=== PATIENT | male | born 1990 | race Caucasian/White ===

== ENCOUNTER 2021-07-02 08:44 | Emergency (ER) | payer BC, OTHER ==
[~2021-07-02] VITALS: Ht 177.8 cm; Wt 72.7 kg
[~2021-07-02 08:44] MED LIST: NO HOME MEDS
[2021-07-02 08:54] VITALS: BP 126/76
--- NOTE | 2021-07-02 10:08 | NUR ---
Patient states his last tetanus shot was 5 years ago.
[2021-07-02] MEDS ORDERED: LIDOcaine 1% W/epiNEPHrine 1:200,000 10ml vial IJ STA (10:26)
== END 2021-07-02 11:02 | disposition home or self-care (01) ==
LOC: ER 08:45
DX: S61.412A Laceration without foreign body of left hand, initial encounter (principal); F12.90 Cannabis use, unspecified, uncomplicated; Z72.89 Other problems related to lifestyle; X58.XXXA Exposure to other specified factors, initial encounter; Y93.89 Activity, other specified; Y92.89 Other specified places as the place of occurrence of the external cause; Y99.8 Other external cause status
CPT/HCPCS: 12002; 73130; 99283

== ENCOUNTER 2021-07-09 08:43 | Emergency (ER) | payer OTHER ==
[~2021-07-09] VITALS: Ht 175.3 cm; Wt 72.7 kg
[2021-07-09 08:45] VITALS: BP 133/67
== END 2021-07-09 10:02 | disposition home or self-care (01) ==
LOC: ER 08:44
DX: S61.412D Laceration without foreign body of left hand, subsequent encounter (principal); F12.90 Cannabis use, unspecified, uncomplicated; Z48.02 Encounter for removal of sutures; Z72.89 Other problems related to lifestyle; X58.XXXD Exposure to other specified factors, subsequent encounter
CPT/HCPCS: 99281

== ENCOUNTER 2023-01-19 20:18 | Emergency (ER) | payer OTHER ==
[~2023-01-19] VITALS: Ht 175.3 cm; Wt 70.5 kg
[2023-01-19 20:20] VITALS: BP 115/76; PULSE 84; RESP 16; TEMP 97.9; O2SAT 97
[2023-01-19] MEDS ORDERED: LIDOcaine 1% W/epiNEPHrine 1:100,000 20ml vial SQ ONE (21:10)
[2023-01-19] MEDS ORDERED: TETanus/Pertussis (Acell)/Diphther VAC/PF (Tdap-Adult) 0.5ml syringe IMVAC ONE (21:10)
[2023-01-19] MEDS ORDERED: bacitracin 15gm ointment TP ONE (21:10)
[2023-01-19] MEDS ORDERED: LIDOCAINE 1%/EPI 1:100,000 inj. 10 ML multi-dose vial SQ ONE (21:15)
== END 2023-01-19 22:43 | disposition home or self-care (01) ==
LOC: ER 20:18
DX: S01.511A Laceration without foreign body of lip, initial encounter (principal); S01.21XA Laceration without foreign body of nose, initial encounter; S01.411A Laceration without foreign body of right cheek and temporomandibular area, initial encounter; F12.90 Cannabis use, unspecified, uncomplicated; Z23 Encounter for immunization; Z72.89 Other problems related to lifestyle; W22.8XXA Striking against or struck by other objects, initial encounter; Y93.89 Activity, other specified; Y92.89 Other specified places as the place of occurrence of the external cause; Y99.8 Other external cause status
CPT/HCPCS: 12011; 40650; 90471; 90715; 99284; J3490; A6449